=== PATIENT | female | born 1980 | race Caucasian/White ===

== ENCOUNTER 2017-02-11 16:07 | Emergency (ER) | payer MEDICAID | END 2017-02-11 19:03 | disposition left against medical advice (07) | LOC: DL.ED 16:07 | DX: Z53.21 Procedure and treatment not carried out due to patient leaving prior to being seen by health care provider (principal) ==

== ENCOUNTER 2017-06-19 19:23 | Emergency (ER) | payer MEDICAID | END 2017-06-19 20:14 | disposition left against medical advice (07) | LOC: DL.ED 19:23 | DX: Z53.21 Procedure and treatment not carried out due to patient leaving prior to being seen by health care provider (principal) ==

== ENCOUNTER 2017-09-13 13:09 | Emergency (ER) | payer MEDICAID ==
[2017-09-13 14:02] VITALS: BP 117/90
[2017-09-13] MEDS ORDERED: Sodium Chloride 0.9% 10 ML Syringe FLUSH PRN (14:20)
[2017-09-13] MEDS ORDERED: Sodium Chloride 0.9% 1,000 ML IV ONE (14:20)
--- NOTE | 2017-09-13 14:48 | CR ---
Clinical history: 36-year-old female cough, wheezing and chest pain. Interpretation: Normal cardiac silhouette without alveolar edema or dependent effusion. Mild peribronchial "cuffing" and associated mild air trapping suggesting reactive airway disease but no new focal lobar pneumonia or atelectasis/collapse when compared directly to to July 2013 exam . Annia thorax unremarkable. No pneumothorax. CONCLUSION: Bronchial inflammatory changes. No lobar pneumonia or heart failure.
[2017-09-13 14:55] LABS: CHLORIDE,CL 104 mmol/L (101-111); SODIUM,NA 136 mmol/L (135-145)
[2017-09-13] MEDS ORDERED: methylPREDNISolone Sodium Succinate 125 MG/2 ML SDV IVPUSH ONE (15:08)
[2017-09-13] MEDS ORDERED: Albuterol 0.083% 2.5 MG/3 ML Neb Soln NEB ONE (15:09)
[2017-09-13] MEDS ORDERED: cefTRIAXone 1 GM in Sodium Chloride 0.9% 50 ML IV ONE (15:12)
[2017-09-13] MEDS ORDERED: Azithromycin 250 MG Tab PO ONE (15:12)
--- NOTE | 2017-09-13 15:20 | EDM.PDOC ---
ED HPI GENERAL MEDICAL PROBLEM - General Chief Complaint: Respiratory Problem Stated Complaint: [id number] TROUBLE BREATHING Time Seen by Provider: 09/13/17 14:11 Source of Information: Reports: Patient, RN, RN Notes Reviewed History Limitations: Reports: No Limitations - History of Present Illness INITIAL COMMENTS - FREE TEXT/NARRATIVE: Patient presents with productive green phlegm. She has had sore sinuses x5 days , coughx3 days and sore throat x5 days. She has had chills. No nausea, vomiting or diarrhea. She has had extreme chest pain and SOB. She passed out at work. She has pain 08/15. Location: Reports: Head, Chest Quality: Reports: Ache Severity: Severe Improves with: Reports: None Worsens with: Reports: None Associated Symptoms: Reports: No Other Symptoms Chest Pain Score (Numeric/FACES): 5 - Related Data Allergies Allergy/AdvReac Type Severity Reaction Status Date / Time amoxicillin trihydrate Allergy Diarrhea Verified 09/13/17 13:56 [From Augmentin] metronidazole [From Metrogel] Allergy Nausea and Verified 09/13/17 13:56 Vomiting potassium clavulanate Allergy Diarrhea Verified 09/13/17 13:56 [From Augmentin] Home Meds: Home Meds Escitalopram Oxalate [Lexapro] 20 mg PO DAILY 09/07/14 [History] Topiramate [Topamax] 200 mg PO DAILY 09/07/14 [History] Zolpidem Tartrate [Ambien] 5 mg PO BEDTIME PRN 09/07/14 [History] Ibuprofen [Motrin] 600 mg PO Q6H PRN 02/02/16 [History] Lisdexamfetamine Dimesylate [Vyvanse] 70 mg PO DAILY 12/28/16 [History] ALPRAZolam [Xanax] 2 mg PO BEDTIME PRN 09/13/17 [History] Dextroamphetamine/Amphetamine [Adderall 20 mg Tablet] 1 tab PO DAILY 09/13/17 [ History] Dextroamphetamine/Amphetamine [Adderall] 30 mg PO DAILY 09/13/17 [History] Past Medical History HEENT History: Reports: None Cardiovascular History: Reports: None Respiratory History: Reports: Bronchitis, Recurrent, Pneumonia, Recurrent, SOB Gastrointestinal History: Reports: None Genitourinary History: Reports: None 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) Other OB/BYN History: 02-02-16 hysterectomy Musculoskeletal History: Reports: None Neurological History: Reports: None Psychiatric History: Reports: Anxiety, Depression Endocrine/Metabolic History: Reports: None Hematologic History: Reports: None Immunologic History: Reports: None Oncologic (Cancer) History: Reports: None Dermatologic History: Reports: None - Infectious Disease History Infectious Disease History: Reports: Chicken Pox - Past Surgical History Head Surgeries/Procedures: Reports: None GI Surgical History: Reports: Appendectomy Female Surgical History: Reports: Breast Reduction, Section, Hysterectomy Social & Family History - Family History Family Medical History: Noncontributory - Tobacco Use Smoking Status *Q: Current Every Day Smoker Years of Tobacco use: 15 Packs/Tins Daily: 1 Used Tobacco, but Quit: No Second Hand Smoke Exposure: No - Caffeine Use Caffeine Use: Reports: Coffee, Soda - Alcohol Use Days Per Week of Alcohol Use: 0 - Recreational Drug Use Recreational Drug Use: No ED ROS GENERAL - Review of Systems Review Of Systems: ROS reveals no pertinent complaints other than HPI. ED EXAM, GENERAL - Physical Exam Exam: See Below Exam Limited By: No Limitations General Appearance: Alert, WD/WN, No Apparent Distress Eye Exam: Bilateral Eye: Normal Inspection Ears: Normal External Exam, Normal Canal, Hearing Grossly Normal, Normal TMs Nose: Normal Inspection, Normal Mucosa, No Blood Throat/Mouth: Other (erythema oropharynx.) Head: Atraumatic, Normocephalic Neck: Normal Inspection, Supple, Non-Tender, Full Range of Motion Respiratory/Chest: Rhonchi, Wheezing, Other (Cough.SOB at times.) Cardiovascular: Normal Peripheral Pulses, Regular Rate, Rhythm, No Edema, No Gallop, No JVD, No Murmur, No Rub GI/Abdominal: Normal Bowel Sounds, Soft, Non-Tender, No Organomegaly, No Distention, No Abnormal Bruit, No Mass (Female) Exam: Deferred Rectal (Female) Exam: Deferred Back Exam: Normal Inspection, Full Range of Motion, NT Extremities: Normal Inspection, Normal Range of Motion, Non-Tender, Normal Capillary Refill, No Pedal Edema Neurological: Alert, Oriented, CN II-XII Intact, Normal Cognition, Normal Gait, Normal Reflexes, No Motor/Sensory Deficits Psychiatric: Normal Affect, Normal Mood Skin Exam: Other (pale.) Lymphatic: No Adenopathy Course - Vital Signs Last Recorded V/S: Last Vital Signs Temp 99.3 F 09/13/17 13:47 Pulse 78 09/13/17 15:09 Resp 20 09/13/17 13:47 BP 117/90 09/13/17 13:47 Pulse Ox 100 09/13/17 15:09 - Orders/Labs/Meds Orders: Active Orders 24 hr Category Date Time Status Peripheral IV Care [RC] . DIRECTED Care 09/13/17 14:20 Active RT Aerosol Therapy [RC] ASDIRECTED Care 09/13/17 15:09 Active RT Post Treatment Assessment [RC] Click to Edit Care 09/13/17 15:28 Active RT Pre-Treatment Assessment [RC] Click to Edit Care 09/13/17 15:28 Active Peripheral IV Insertion Adult [OM.PC] Stat Oth 09/13/17 14:19 Ordered Labs: Laboratory Tests 09/13/17 09/13/17 Range/Units 14:26 14:26 WBC 14.5 H (5.0-10.0) 10^3/uL RBC 4.21 (4.2-5.4) 10^6/uL Hgb 13.5 (12.0-16.0) g/dL Hct 41.1 (37.0-47.0) % MCV 97.6 (80-100) fL MCH 32.1 (27.0-34.0) pg MCHC 32.8 L (33.0-35.0) g/dL Plt Count 440 (150-450) 10^3/uL Neut % (Auto) 78.8 H (42.2-75.2) % Lymph % (Auto) 14.1 L (20.5-50.1) % Stafford % (Auto) 5.8 (2-8) % Eos % (Auto) 1.0 (1.0-3.0) % Baso % (Auto) 0.3 (0.0-1.0) % Sodium 136 (135-145) mmol/L Potassium 3.7 (3.6-5.0) mmol/L Chloride 104 (101-111) mmol/L Carbon Dioxide 23.0 (21.0-31.0) mmol/L Anion Gap 12.7 BUN 9 (7-18) mg/dL Creatinine 0.7 (0.6-1.3) mg/dL Est Cr Clr Drug Dosing 99.01 mL/min Estimated GFR (MDRD) > 60 BUN/Creatinine Ratio 12.85 Glucose 104 (74-105) mg/dL Calcium 8.5 (8.4-10.2) mg/dl Total Bilirubin 0.6 (0.2-1.0) mg/dL AST 18 (10-42) IU/L ALT 18 (10-60) IU/L Alkaline Phosphatase 65 (42-121) IU/L Total Protein 7.3 (6.7-8.2) g/dl Albumin 3.8 (3.2-5.5) g/dl Globulin 3.5 Albumin/Globulin Ratio 1.09 Meds: Medications Discontinued Medications Generic Name Dose Route Start Last Admin Trade Name Freq PRN Reason Stop Dose Admin Albuterol 2.5 mg 09/13/17 15:09 09/13/17 15:32 Proventil Neb Soln NEB 09/13/17 15:10 2.5 mg ONETIME ONE Administration Albuterol 6.7 gm 09/13/17 15:27 09/13/17 15:33 Proventil Hfa INH 09/13/17 15:28 2 puff ONETIME ONE Administration Azithromycin 500 mg 09/13/17 15:12 09/13/17 15:27 Zithromax PO 09/13/17 15:13 500 mg ONETIME ONE Administration Sodium Chloride 1,000 mls @ 999 mls/hr 09/13/17 14:20 09/13/17 16:20 Normal Saline IV 09/13/17 15:20 Infused .BOLUS ONE Infusion Ceftriaxone Sodium 1 gm/ 50 mls @ 100 mls/hr 09/13/17 15:12 09/13/17 15:26 Sodium Chloride IV 09/13/17 15:41 100 mls/hr ONETIME ONE Administration Methylprednisolone Sodium Succinate 125 mg 09/13/17 15:08 09/13/17 15:28 Solu-Medrol IVPUSH 09/13/17 15:09 Not Given ONETIME ONE Sodium Chloride 10 ml 09/13/17 14:20 09/13/17 14:38 Saline Flush FLUSH 10 ml ASDIRECTED PRN Administration Keep Vein Open - Radiology Interpretation Free Text/Narrative:: chest x-ray: Bronchial inflammatory changes. No lobar pneumonia or heart failure See rad report Departure - Departure Time of Disposition: 15:54 Disposition: Home, Self-Care 01 Condition: Fair Clinical Impression: Pneumonia Qualifiers: Pneumonia type: due to unspecified organism Laterality: unspecified laterality Lung location: unspecified part of lung Qualified Code(s): J18.9 - Pneumonia, unspecified organism - Discharge Information Instructions: Shortness of Breath, [id number], Upper Respiratory Infection, Adult, [id number], Community-Acquired Pneumonia, Adult, [id number] Forms: ED Department Discharge Additional Instructions: Drink plenty of water. RX: Zithromax, Albuterol inhaler Follow up next week with your primary care facility for re-check - My Orders Last 24 Hours: My Active Orders 09/13/17 14:19 Peripheral IV Insertion Adult [OM.PC] Stat 09/13/17 14:20 Peripheral IV Care [RC] . DIRECTED 09/13/17 15:09 RT Aerosol Therapy [RC] ASDIRECTED 09/13/17 15:28 RT Post Treatment Assessment [RC] Click to Edit RT Pre-Treatment Assessment [RC] Click to Edit - Assessment/Plan Last 24 Hours: My Active Orders 09/13/17 14:19 Peripheral IV Insertion Adult [OM.PC] Stat 09/13/17 14:20 Peripheral IV Care [RC] . DIRECTED 09/13/17 15:09 RT Aerosol Therapy [RC] ASDIRECTED 09/13/17 15:28 RT Post Treatment Assessment [RC] Click to Edit RT Pre-Treatment Assessment [RC] Click to Edit
[2017-09-13] MEDS ORDERED: Albuterol 6.7 GM Inhaler INH ONE (15:27)
== END 2017-09-13 16:21 | disposition home or self-care (01) ==
LOC: DL.ED 13:09
DX: J18.9 Pneumonia, unspecified organism (principal); Z88.1 Allergy status to other antibiotic agents; Z88.8 Allergy status to other drugs, medicaments and biological substances; Z79.899 Other long term (current) drug therapy; F17.210 Nicotine dependence, cigarettes, uncomplicated
CPT/HCPCS: 36415; 71020; 80053; 85025; 94640; 96361; 96365; 99285; A9270; J0696; J7030; J7050; J7620

== ENCOUNTER 2017-11-02 14:57 | Emergency (ER) | payer MEDICAID ==
[2017-11-02 15:15] VITALS: BP 114/71
[2017-11-02 15:59] LABS: CHLORIDE,CL 105 mmol/L (101-111); SODIUM,NA 138 mmol/L (135-145)
--- NOTE | 2017-11-02 16:21 | CR ---
Clinical history: 36-year-old female heart "palpitations". 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 No new signs of cardiopulmonary abnormality when compared directly to previous films of September 25. Slight shaggy accentuation central lung markings chronic and unchanged. Hypertrophic arthritic change s of spine. Normal cardiac silhouette without alveolar edema or dependent effusion. No new lung mass, hilar lymphadenopathy or focal lobar pneumonia. No atelectasis/collapse. CONCLUSION: No acute new cardiopulmonary abnormality.
[2017-11-02] MEDS ORDERED: GI Cocktail Oral Solution 30 ML PO ONE (16:47)
--- NOTE | 2017-11-03 08:09 | EDM.PDOC ---
Scribed by Bina Diggs 11/02/17 [id number] for Yadira Mello NP ED HPI GENERAL MEDICAL PROBLEM - General Chief Complaint: Chest Pain Stated Complaint: HEART PALIPATATIONS Time Seen by Provider: 11/02/17 15:37 Source of Information: Reports: Patient, RN, RN Notes Reviewed History Limitations: Reports: No Limitations - History of Present Illness INITIAL COMMENTS - FREE TEXT/NARRATIVE: Patient presents with complaint of heart "racing/pounding out of chest". She has had diaphoresis. She stood up and dropped to the ground and passed out. Possible mitral valve issue 20 years ago. States she has had chest pain today which is severe 10/10. Pain level is 8/10 right now. Pain is under left breast. She took 3 aspirins before coming in today. She had pneumonia a couple of weeks ago. Onset: Today Location: Reports: Chest Quality: Reports: Ache Severity: Moderate Improves with: Reports: None Worsens with: Reports: Immobilization Associated Symptoms: Reports: No Other Symptoms Left Chest Pain Score (Numeric/FACES): 8 - Related Data Allergies Allergy/AdvReac Type Severity Reaction Status Date / Time amoxicillin trihydrate Allergy Diarrhea Verified 11/02/17 15:08 [From Augmentin] metronidazole [From Metrogel] Allergy Nausea and Verified 11/02/17 15:08 Vomiting potassium clavulanate Allergy Diarrhea Verified 11/02/17 15:08 [From Augmentin] Home Meds: Home Meds Escitalopram Oxalate [Lexapro] 20 mg PO DAILY 09/07/14 [History] Topiramate [Topamax] 200 mg PO DAILY 09/07/14 [History] Zolpidem Tartrate [Ambien] 5 mg PO BEDTIME PRN 09/07/14 [History] Ibuprofen [Motrin] 600 mg PO Q6H PRN 02/02/16 [History] Lisdexamfetamine Dimesylate [Vyvanse] 70 mg PO DAILY 12/28/16 [History] ALPRAZolam [Xanax] 2 mg PO BEDTIME PRN 09/13/17 [History] Dextroamphetamine/Amphetamine [Adderall 20 mg Tablet] 1 tab PO DAILY 09/13/17 [ History] Dextroamphetamine/Amphetamine [Adderall] 30 mg PO DAILY 09/13/17 [History] Past Medical History HEENT History: Reports: None Cardiovascular History: Reports: Other (See Below) (some type of cardiac surgery.) Respiratory History: Reports: Bronchitis, Recurrent, Pneumonia, Recurrent, SOB Gastrointestinal History: Reports: None Genitourinary History: Reports: None 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) Other OB/BYN History: 02-02-16 hysterectomy Musculoskeletal History: Reports: None Neurological History: Reports: None Psychiatric History: Reports: Anxiety, Depression, PTSD Endocrine/Metabolic History: Reports: None Hematologic History: Reports: Other (See Below) (Blood disorder--too many platelets.) Immunologic History: Reports: None Oncologic (Cancer) History: Reports: None Dermatologic History: Reports: None - Infectious Disease History Infectious Disease History: Reports: Chicken Pox - Past Surgical History Head Surgeries/Procedures: Reports: None Cardiovascular Surgical History: Reports: Other (See Below) Other Cardiovascular Surgeries/Procedures: heart surgery-had extra nerves GI Surgical History: Reports: Appendectomy Female Surgical History: Reports: Breast Reduction, Section, Hysterectomy, Tubal Ligation Endocrine Surgical History: Reports: Thyroidectomy Social & Family History - Family History Family Medical History: Noncontributory - Tobacco Use Smoking Status *Q: Current Every Day Smoker Years of Tobacco use: 20 Packs/Tins Daily: 1 Used Tobacco, but Quit: No Second Hand Smoke Exposure: No - Caffeine Use Caffeine Use: Reports: Coffee, Soda - Alcohol Use Days Per Week of Alcohol Use: 0 - Recreational Drug Use Recreational Drug Use: No ED ROS GENERAL - Review of Systems Review Of Systems: ROS reveals no pertinent complaints other than HPI. ED EXAM, GENERAL - Physical Exam Exam: See Below Exam Limited By: No Limitations General Appearance: Alert, WD/WN, No Apparent Distress Eye Exam: Bilateral Eye: Normal Inspection Ears: Normal External Exam, Normal Canal, Hearing Grossly Normal, Normal TMs Nose: Normal Inspection, Normal Mucosa, No Blood Throat/Mouth: Normal Inspection, Normal Lips, Normal Teeth, Normal Gums, Normal Oropharynx, Normal Voice, No Airway Compromise Head: Atraumatic, Normocephalic Neck: Normal Inspection, Supple, Non-Tender, Full Range of Motion Respiratory/Chest: No Respiratory Distress, Lungs Clear, Normal Breath Sounds, No Accessory Muscle Use, Chest Non-Tender Cardiovascular: Normal Peripheral Pulses, Regular Rate, Rhythm, No Edema, No Gallop, No JVD, No Murmur, No Rub GI/Abdominal: Normal Bowel Sounds, Soft, Non-Tender, No Organomegaly, No Distention, No Abnormal Bruit, No Mass (Female) Exam: Deferred Rectal (Female) Exam: Deferred Back Exam: Normal Inspection, Full Range of Motion, NT Extremities: Normal Inspection, Normal Range of Motion, Non-Tender, Normal Capillary Refill, No Pedal Edema Neurological: Alert, Oriented, CN II-XII Intact, Normal Cognition, Normal Gait, Normal Reflexes, No Motor/Sensory Deficits Psychiatric: Normal Affect, Normal Mood Skin Exam: Warm, Dry, Intact, Normal Color, No Rash Lymphatic: No Adenopathy EKG INTERPRETATION EKG Date: 11/02/17 Rhythm: NSR Comparison: NA - No Prior EKG Course - Vital Signs Last Recorded V/S: Last Vital Signs Temp 97.8 F 11/02/17 15:15 Pulse 88 11/02/17 15:15 Resp 16 11/02/17 15:15 BP 114/71 11/02/17 15:15 Pulse Ox 99 11/02/17 15:15 - Orders/Labs/Meds Orders: Active Orders 24 hr Category Date Time Status EKG 12 Lead [EKG Documentation Completion] [RC] STAT Care 11/02/17 15:36 Active Labs: Laboratory Tests 11/02/17 11/02/17 11/02/17 Range/Units 15:30 15:30 16:14 WBC 12.1 H (5.0-10.0) 10^3/uL RBC 4.34 (4.2-5.4) 10^6/uL Hgb 13.9 (12.0-16.0) g/dL Hct 41.8 (37.0-47.0) % MCV 96.3 (80-100) fL MCH 32.0 (27.0-34.0) pg MCHC 33.3 (33.0-35.0) g/dL Plt Count 486 H (150-450) 10^3/uL Neut % (Auto) 67.6 (42.2-75.2) % Lymph % (Auto) 23.5 (20.5-50.1) % Sawyer % (Auto) 7.6 (2-8) % Eos % (Auto) 1.1 (1.0-3.0) % Baso % (Auto) 0.2 (0.0-1.0) % Sodium 138 (135-145) mmol/L Potassium 3.3 L (3.6-5.0) mmol/L Chloride 105 (101-111) mmol/L Carbon Dioxide 24.0 (21.0-31.0) mmol/L Anion Gap 12.3 BUN 7 (7-18) mg/dL Creatinine 0.8 (0.6-1.3) mg/dL Est Cr Clr Drug Dosing 83.14 mL/min Estimated GFR (MDRD) > 60 BUN/Creatinine Ratio 8.75 Glucose 151 H (74-105) mg/dL Calcium 8.4 (8.4-10.2) mg/dl Total Bilirubin 0.5 (0.2-1.0) mg/dL AST 21 (10-42) IU/L ALT 16 (10-60) IU/L Alkaline Phosphatase 66 (42-121) IU/L Troponin I < 0.02 (0.00-0.02) ng/ml Total Protein 7.2 (6.7-8.2) g/dl Albumin 3.8 (3.2-5.5) g/dl Globulin 3.4 Albumin/Globulin Ratio 1.12 Urine Color Daina (YELLOW) Urine Appearance Cloudy (CLEAR) Urine pH 7.0 (5.0-9.0) Ur Specific Stuart 1.020 (1.005-1.030) Urine Protein Trace H (NEGATIVE) Urine Glucose (UA) Negative (NEGATIVE) Urine Ketones Trace H (NEGATIVE) Urine Occult Blood Negative (NEGATIVE) Urine Nitrite Negative (NEGATIVE) Urine Bilirubin Small H (NEGATIVE) Urine Urobilinogen 1.0 (0.2-1.0) mg/dL Ur Leukocyte Esterase Negative (NEGATIVE) Urine RBC 0-5 /HPF Urine WBC 0-5 (0-5/HPF) /HPF Ur Epithelial Cells Many H /HPF Amorphous Sediment Moderate H (0/HPF) /HPF Urine Bacteria Few (0-FEW/HPF) /HPF Urine Mucus Moderate H /LPF Urine Opiates Screen (NEGATIVE) Ur Oxycodone Screen (NEGATIVE) Urine Methadone Screen (NEGATIVE) Ur Barbiturates Screen (NEGATIVE) U Tricyclic Antidepress (NEGATIVE) Ur Phencyclidine Scrn (NEGATIVE) Ur Amphetamine Screen (NEGATIVE) U Methamphetamines Scrn (NEGATIVE) Urine MDMA Screen (NEGATIVE) U Benzodiazepines Scrn (NEGATIVE) Urine Cocaine Screen (NEGATIVE) U Marijuana (THC) Screen (NEGATIVE) Ethyl Alcohol < 5 mg/dL 11/02/17 Range/Units 16:14 WBC (5.0-10.0) 10^3/uL RBC (4.2-5.4) 10^6/uL Hgb (12.0-16.0) g/dL Hct (37.0-47.0) % MCV (80-100) fL MCH (27.0-34.0) pg MCHC (33.0-35.0) g/dL Plt Count (150-450) 10^3/uL Neut % (Auto) (42.2-75.2) % Lymph % (Auto) (20.5-50.1) % Sawyer % (Auto) (2-8) % Eos % (Auto) (1.0-3.0) % Baso % (Auto) (0.0-1.0) % Sodium (135-145) mmol/L Potassium (3.6-5.0) mmol/L Chloride (101-111) mmol/L Carbon Dioxide (21.0-31.0) mmol/L Anion Gap BUN (7-18) mg/dL Creatinine (0.6-1.3) mg/dL Est Cr Clr Drug Dosing mL/min Estimated GFR (MDRD) BUN/Creatinine Ratio Glucose (74-105) mg/dL Calcium (8.4-10.2) mg/dl Total Bilirubin (0.2-1.0) mg/dL AST (10-42) IU/L ALT (10-60) IU/L Alkaline Phosphatase (42-121) IU/L Troponin I (0.00-0.02) ng/ml Total Protein (6.7-8.2) g/dl Albumin (3.2-5.5) g/dl Globulin Albumin/Globulin Ratio Urine Color (YELLOW) Urine Appearance (CLEAR) Urine pH (5.0-9.0) Ur Specific Stuart (1.005-1.030) Urine Protein (NEGATIVE) Urine Glucose (UA) (NEGATIVE) Urine Ketones (NEGATIVE) Urine Occult Blood (NEGATIVE) Urine Nitrite (NEGATIVE) Urine Bilirubin (NEGATIVE) Urine Urobilinogen (0.2-1.0) mg/dL Ur Leukocyte Esterase (NEGATIVE) Urine RBC /HPF Urine WBC (0-5/HPF) /HPF Ur Epithelial Cells /HPF Amorphous Sediment (0/HPF) /HPF Urine Bacteria (0-FEW/HPF) /HPF Urine Mucus /LPF Urine Opiates Screen Negative (NEGATIVE) Ur Oxycodone Screen Negative (NEGATIVE) Urine Methadone Screen Negative (NEGATIVE) Ur Barbiturates Screen Negative (NEGATIVE) U Tricyclic Antidepress Negative (NEGATIVE) Ur Phencyclidine Scrn Negative (NEGATIVE) Ur Amphetamine Screen Positive H (NEGATIVE) U Methamphetamines Scrn Negative (NEGATIVE) Urine MDMA Screen Negative (NEGATIVE) U Benzodiazepines Scrn Positive H (NEGATIVE) Urine Cocaine Screen Negative (NEGATIVE) U Marijuana (THC) Screen Negative (NEGATIVE) Ethyl Alcohol mg/dL Meds: Medications Discontinued Medications Generic Name Dose Route Start Last Admin Trade Name Freq PRN Reason Stop Dose Admin Al Hydroxide/Mg Hydroxide 30 ml 11/02/17 16:47 11/02/17 16:52 Gi Cocktail PO 11/02/17 16:48 30 ml ONETIME ONE Administration - Radiology Interpretation Free Text/Narrative:: Chest x-ray: No acute new cardiopulmonary abnormality. See Rad report. Departure - Departure Time of Disposition: 17:24 Disposition: Home, Self-Care 01 Condition: Fair Clinical Impression: Heart palpitations Instructions: Nonspecific Chest Pain, [id number], Palpitations, [id number] Referrals: Mendy Mckinley MD [Primary Care Provider] - Forms: ED Department Discharge Additional Instructions: Follow up with primary care facility next week. Drink plenty of fluids - My Orders Last 24 Hours: My Active Orders 11/02/17 15:36 EKG 12 Lead [EKG Documentation Completion] [RC] STAT - Assessment/Plan Last 24 Hours: My Active Orders 11/02/17 15:36 EKG 12 Lead [EKG Documentation Completion] [RC] STAT I have read and agree with the documentation that has been completed regarding this visit. By signing this record, I attest that the documentation was completed in my physical presence and is an accurate record of the encounter.
--- NOTE | 2017-12-05 07:07 | EKG ---
11/02/2017- WILLIAM WILLS - EKG done on a 36-year-old female showing sinus rhythm with heart rate of 84 beats per minute, normal axis, normal intervals, no acute ST wave changes. [facility] /[id number]
== END 2017-11-02 17:33 | disposition home or self-care (01) ==
LOC: DL.ED 14:57
DX: R00.2 Palpitations (principal); F17.210 Nicotine dependence, cigarettes, uncomplicated; Z79.899 Other long term (current) drug therapy; Z88.1 Allergy status to other antibiotic agents; Z88.8 Allergy status to other drugs, medicaments and biological substances
CPT/HCPCS: 36415; 71020; 80053; 80305; 81001; 84484; 85025; 93005; 99285; A9270; G0480